=== PATIENT | female | born 1970 | race Caucasian/White ===

== ENCOUNTER 2022-08-28 19:27 | Emergency (ER) | payer OTHER ==
[2022-08-28 19:36] VITALS: BP 150/87; PULSE 89; RESP 18; TEMP 98.6; BMI 30.7
[2022-08-28] MEDS ORDERED: DIPHTH,PERTUSS(ACELL),TET 0.5 ML DISP.SYRIN IM ONE ×2 (21:07→21:10)
== END 2022-08-28 21:20 | disposition home or self-care (01) ==
LOC: FER 19:27
PROC: 0HQMXZZ Repair Right Foot Skin, External Approach (ICD-10-PCS; principal; 2022-08-28)
PROC: 3E0234Z Introduction of Serum, Toxoid and Vaccine into Muscle, Percutaneous Approach (ICD-10-PCS; 2022-08-28)
DX: S91.112A Laceration without foreign body of left great toe without damage to nail, initial encounter (principal); W25.XXXA Contact with sharp glass, initial encounter
CPT/HCPCS: 12001; 73660-TC-LT-FY; 90471; 90715; 99284-25